=== PATIENT | male | born 1975 | race Caucasian/White ===

== ENCOUNTER → 2018-11-20 | Outpatient (REF) ==
[~2018-11-20] MED LIST: AMOXICILLIN500 MG PO; TAM75CAP PO
[2018-11-20 10:32] LABS: CHOLESTEROL HDL RATIO 3.7 (<4.4 (CALC))
== END | disposition home or self-care (01) | DRG 951 ==
LOC: LAB 07:07
PROVIDERS: ATTEND Family Medicine
DX: Z02.6 Encounter for examination for insurance purposes (principal)